=== PATIENT | female | born 1960 | race African-American/Black ===

== ENCOUNTER 2021-09-26 19:37 | Emergency (ER) | payer OTHER ==
[~2021-09-26] VITALS: Ht 154.9 cm; Wt 97.5 kg
--- NOTE | 2021-09-26 19:45 | NUR ---
pt a/o pt is in room 3 states she has left shoulder pain.
--- NOTE | 2021-09-26 20:06 | NUR ---
Dr. Lopez at bedside for MSE.
--- NOTE | 2021-09-26 20:22 | NUR ---
radiology for keyla xray performed and lab draw performed.
[2021-09-26 20:34] LABS: HEMATOCRIT 34.1 % (31.2-41.9); MEAN CORPUSCULAR HEMOGLOBIN 21.6 uug (24.7-32.8); MEAN CORPUSCULAR VOLUME 66.4 fL (75.5-95.3); PLATELET COUNT (AUTO) 263 K/uL (179-408)
[2021-09-26 20:39] LABS: POTASSIUM 3.6 mmol/L (3.5-5.1)
[2021-09-26] MEDS ORDERED: OXYC-128 PO (20:55)
[2021-09-26 21:15] VITALS: BP 150/70
--- NOTE | 2021-09-26 21:15 | NUR ---
Patient discharged to home in stable condition. Written and verbal after care instructions given. Patient verbalizes understanding of instructions. Stressed follow up or return to ER for worsening s/s.
== END 2021-09-26 21:15 | disposition home or self-care (01) ==
LOC: ER 19:41
DX: E08.65 Diabetes mellitus due to underlying condition with hyperglycemia (principal); M75.22 Bicipital tendinitis, left shoulder; D64.9 Anemia, unspecified; I10 Essential (primary) hypertension; E66.01 Morbid (severe) obesity due to excess calories; Z68.41 Body mass index [BMI] 40.0-44.9, adult
CPT/HCPCS: 36415; 73030; 85025; A4663